=== PATIENT | male | born 1945 | race Caucasian/White ===

== ENCOUNTER 2017-09-25 06:51 | Emergency (ER) | payer MEDICARE ==
[~2017-09-25 06:51] MED LIST: ALB6.7R INH; CYC10 PO; HYDR-389 PO; HYDR-4308 PO; LOR10/325 PO; LOR5/325 PO; NOR10/325 PO
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
[2017-09-25] MEDS ORDERED: APAP/HYDROCODONE 325/10 TAB PO ONE (07:10)
[2017-09-25] MEDS ORDERED: OXYC10TA67 PO (07:20)
[2017-09-25 07:26] VITALS: BP 163/104
== END 2017-09-25 07:33 | disposition home or self-care (01) ==
LOC: ER 07:14
DX: M54.32 Sciatica, left side (principal); C44.319 Basal cell carcinoma of skin of other parts of face
CPT/HCPCS: 99283; A9270; 99281